=== PATIENT | male | born 2000 | race Caucasian/White ===

== ENCOUNTER 2023-06-01 17:50 | Emergency (ER) | payer BC ==
[2023-06-01] MEDS ORDERED: diphenhydrAMINE 50 MG/ML SDV IVPUSH ONE (18:58)
[2023-06-01] MEDS ORDERED: methylPREDNISolone Sodium Succinate 40 MG/1 ML SDV IVPUSH ONE (18:58)
[2023-06-01] MEDS ORDERED: Famotidine 20 MG/2 ML SDV IVPUSH ONE (18:58)
== END 2023-06-01 20:25 | disposition home or self-care (01) ==
LOC: JD.ED 17:50
DX: L50.9 Urticaria, unspecified (principal); Z72.0 Tobacco use
CPT/HCPCS: 96374; 96375; 99282; J1200; J2920; J3490

== ENCOUNTER 2023-06-02 08:44 | Emergency (ER) | payer BC ==
[2023-06-02] MEDS ORDERED: Famotidine 20 MG Tab PO ONE (09:11)
[2023-06-02] MEDS ORDERED: diphenhydrAMINE 50 MG Cap PO ONE (09:11)
[2023-06-02] MEDS ORDERED: predniSONE 10 MG Tab PO ONE (09:11)
== END 2023-06-02 09:50 | disposition home or self-care (01) ==
LOC: JD.ED 08:44
DX: L50.0 Allergic urticaria (principal); Z86.16 Personal history of COVID-19
CPT/HCPCS: 99282; A9270; J7512; Q0163

== ENCOUNTER 2023-10-06 18:41 | Emergency (ER) | payer BC | END 2023-10-06 20:01 | disposition home or self-care (01) | LOC: JD.ED 18:41 | DX: M72.2 Plantar fascial fibromatosis (principal); Z86.16 Personal history of COVID-19 | CPT/HCPCS: 99282; 99283 ==